=== PATIENT | female | born 1960 | race Caucasian/White ===

== ENCOUNTER 2020-05-02 16:11 | Outpatient (CLI) | payer MEDICARE, MEDICAID, SELFPAY ==
[2020-05-02 17:38] LABS: Free T4 Free Thyroxine 1.28 ng/dL (0.82-1.77); Thyroid Stimulating Hormone 1.71 uIU/mL (0.27-4.20)
[2020-05-04 21:47] LABS: Adrenocorticotropic Hormone 7 pg/mL (6-50)
== END 2020-05-02 16:12 | disposition home or self-care (01) ==
PROVIDERS: PCP Family Medicine; Visit Provider Internal Medicine
DX: E03.9 Hypothyroidism, unspecified (principal); E04.1 Nontoxic single thyroid nodule; M06.9 Rheumatoid arthritis, unspecified; R41.3 Other amnesia; R63.5 Abnormal weight gain; S09.90XA Unspecified injury of head, initial encounter; Z78.0 Asymptomatic menopausal state
CPT/HCPCS: 36415; 82024; 84439; 84443; 99205

== ENCOUNTER 2020-05-04 11:35 | Outpatient (CLI) | payer MEDICARE, MEDICAID, SELFPAY ==
[2020-05-04 11:52] LABS: Total Volume Urine 3500 ml
[2020-05-04 12:23] LABS: Urine Creatinine 22 mg/dL (28-217)
[2020-05-09 19:19] LABS: Free Cortisol Urine 6.2 mcg/24 h (4.0-50.0); Total Urine 3000 mL; Urine Creatinine 0.65 g/24 h (0.50-2.15)
== END 2020-05-04 11:36 | disposition home or self-care (01) ==
LOC: LAB 11:37
PROVIDERS: PCP Family Medicine; Visit Provider Internal Medicine
DX: E03.9 Hypothyroidism, unspecified (principal); R41.3 Other amnesia; R63.5 Abnormal weight gain; S09.90XA Unspecified injury of head, initial encounter; X58.XXXA Exposure to other specified factors, initial encounter
CPT/HCPCS: 82530; 82570

== ENCOUNTER 2020-05-31 12:36 | Outpatient (CLI) | payer MEDICARE, SELFPAY ==
--- NOTE | 2020-05-31 13:30 | US_ITS ---
WS: [id number] THYROID ULTRASOUND HISTORY: history of thyroid nodules COMPARISON: None available. Right lobe: 1.0 cm x 1.0 cm x 2.2 cm. Volume: 1.1 cm3. There are small caliber thyroid. Echogenic irregularly-shaped residual thyroid. No masses. No adenopa thy. Left lobe: 0.7 cm x 0.9 cm x 1.5 cm. Volume: 0.5 cm3. Small caliber thyroid. No dominant nodule. Echogenic irregular shaped residual thyroid. No adenopathy . Isthmus: 0.3 cm. Symmetric appearance of the submandibular glands. US/US thyroid [id number] IMPRESSION: Markedly atrophied heterogeneous residual thyroid gland. No suspicious nodules.
--- NOTE | 2020-05-31 13:57 | XR_ITS ---
WS: [id number] SCREENING DEXA SCAN CENX CLINICAL INFORMATION: screen for osteoporosis COMPARISON: None. FINDINGS: The L1-L4 bone mineral density measures 1.062 g/cm2. This corresponds to a T score score of -1.0 and Z score of 0.0. Left femoral neck bone mineral density measures 0.840 g/cm2. This corresponds to a T score of -1.3 an d Z score of -0.6. Right femoral neck bone mineral density measures 0.665 g/cm2. This corresponds to a T score -2.7of an d Z score of -1.9. Mean femoral neck bone mineral density measures 0.753 g/cm2. This corresponds to a T score of -2.0 an d Z score of -1.3. XR/XR DEXA axial skeleton* [id number] IMPRESSION: Osteopenia lumbar spine and left femur. Osteoporosis right femur. Patient's FRAX calculated 10 year probability for major osteoporotic fracture i s 22.6 % and osteoporotic hip fracture is 5.9%.
[2020-06-03 12:57] LABS: IGF1 LC/MS 89 ng/mL (41-279); Z Score (Male) -0.8 SD (-2.0 - +2.0)
== END 2020-05-31 12:37 | disposition home or self-care (01) ==
LOC: RAD 12:37
PROVIDERS: PCP Family Medicine; Visit Provider Internal Medicine
DX: Z13.820 Encounter for screening for osteoporosis (principal); E03.9 Hypothyroidism, unspecified; R63.5 Abnormal weight gain; R41.3 Other amnesia; S09.90XA Unspecified injury of head, initial encounter; X58.XXXA Exposure to other specified factors, initial encounter; M85.88 Other specified disorders of bone density and structure, other site
CPT/HCPCS: 36415; 76536; 77080; 84305

== ENCOUNTER 2020-10-11 12:06 | Outpatient (CLI) | payer MEDICARE, SELFPAY ==
--- NOTE | 2020-10-11 | XR_ITS ---
WS: [id number] Exam: XR foot LT min 3V* [id number] Date/Time of Exam: 10/11/2020 12:00 AM Reason For Exam: PAIN Findings: The foot was examined in multiple views and reveals no fractures or displacements of bone. No bony a nomalies are noted. The bony elements are in adequate alignment. The joint spaces are smooth and eq uidistant. Small plantar heel spur. XR/XR foot LT min 3V* [id number] IMPRESSION: No fracture or other significant finding. Small heel spur.
--- NOTE | 2020-10-11 12:26 | XR_ITS ---
WS: [email or web address] Exam: XR foot RT min 3V* [id number] Date/Time of Exam: 10/11/2020 12:26 PM Reason For Exam: PAIN Findings: The foot was examined in multiple views and reveals no fractures or displacements of bone. No bony a nomalies are noted. The bony elements are in adequate alignment. The joint spaces are smooth and eq uidistant. XR/XR foot RT min 3V* [id number] IMPRESSION: Negative right foot.
--- NOTE | 2020-10-11 12:26 | XR_ITS ---
WS: [email or web address] Exam: XR hand RT min 3V* [id number] Date/Time of Exam: 10/11/2020 12:26 PM Reason For Exam: inflammatory arthritis No fracture or dislocation. Soft tissues appear normal. Minimal degenerative changes in the IP joints . XR/XR hand RT min 3V* [id number] IMPRESSION: 1. No fracture or dislocation. Minimal DJD.
--- NOTE | 2020-10-11 12:26 | XR_ITS ---
WS: [id number] Exam: XR hand LT min 3V* [id number] Date/Time of Exam: 10/11/2020 12:26 PM Reason For Exam: inflammatory arthritis No acute fracture or dislocation. Minimal degenerative changes in the IP joints. No radiopaque soft t issue foreign bodies are seen. XR/XR hand LT min 3V* [id number] IMPRESSION: 1. Minimal degenerative change. No fracture or other significant finding. 2. 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
[2020-10-11 14:16] LABS: Erythrocyte Sedimentation Rate 18 mm/hr (0-15)
[2020-10-12 14:13] LABS: Cyclic Citrullinated Peptide <16 UNITS
[2020-10-12 17:23] LABS: Anti-Double Strand DNA AB 3 IU/mL; Centromere B Antibody <1.0 NEG AI (<1.0 NEG); JO-1 Antibody <1.0 NEG AI (<1.0 NEG); SS A Ro Sjogrens Antibody <1.0 NEG AI (<1.0 NEG); SS-B/LA IGG <1.0 NEG AI (<1.0 NEG); Sm/RNP Antibody <1.0 NEG AI (<1.0 NEG)
== END 2020-10-11 12:07 | disposition home or self-care (01) ==
LOC: RAD 12:18
PROVIDERS: PCP Family Medicine; Visit Provider Internal Medicine Pulmonary Disease
DX: M79.672 Pain in left foot (principal); M79.671 Pain in right foot; M19.042 Primary osteoarthritis, left hand; M19.041 Primary osteoarthritis, right hand; M77.9 Enthesopathy, unspecified
CPT/HCPCS: 36415; 73130; 73630; 85651; 86140; 86225; 86235

== ENCOUNTER 2020-10-21 08:34 | Outpatient (CLI) | payer MEDICARE, SELFPAY ==
--- NOTE | 2020-10-21 09:00 | CT_ITS ---
WS: [id number] CT CHEST TECHNIQUE: Noncontrast CT of the chest with coronal and sagittal reformatted images. CLINICAL INFORMATION: hilar mass COMPARISON: CT February 2019 and radiograph August 2020 DLP: 693.[address] scans at [facility] use at least one of these dose optimization techniques: automated e xposure control; mA and/or kV adjustment per patient size (includes targeted exams where dose is matc hed to clinical indication); or iterative reconstruction. FINDINGS: Moderate chronic emphysematous changes. Hazy groundglass infiltrates mainly in a subpleural location in the upper lobes and perihilar regions and both posterior lower lobes. Subsegmental atelectasis in the lung bases. No focal consolidation or pleural fluid. 5 mm noncalcified nodule right upper lobe. Normal caliber thoracic aorta. No mediastinal or hilar lymphadenopathy. Slightly prominent left perib ronchial lymph node measuring 9 mm. No axillary lymphadenopathy. Aberrant right subclavian artery. Adrenal glands are normal. Numerous partially evaluated hepatic cysts and these were present in 2019. Normal GE junction. CT/CT chest wo con [id number] IMPRESSION: 1. Moderate chronic emphysematous changes. 2. Bilateral hazy groundglass infiltrates primarily in a subpleural location. Findings suspicious for viral pneumonia including COVID 19 Pneumonia 3. No mediastinal or hilar lymphadenopathy. 4. Noncalcified 5 mm groundglass nodule right upper lobe. This appears stable since February 2019. Recommend 12 month follow-up. 5. Multiple partially visualized hepatic cysts.
== END 2020-10-21 08:35 | disposition home or self-care (01) ==
PROVIDERS: PCP Family Medicine; Visit Provider Internal Medicine Pulmonary Disease
DX: R91.8 Other nonspecific abnormal finding of lung field (principal); K76.89 Other specified diseases of liver; R91.1 Solitary pulmonary nodule
CPT/HCPCS: 71250

== ENCOUNTER 2021-01-02 12:50 | Outpatient (CLI) | payer MEDICARE, SELFPAY ==
--- NOTE | 2021-01-02 13:16 | CT_ITS ---
WS: [email or web address] Exam: CT chest wo con [id number] Date/Time of Exam: 01/02/2021 1:18 PM Reason For Exam: hilar mass DLP: 649.[address] scans at [facility] use at least one of these dose optimization techniques: automated e xposure control; mA and/or kV adjustment per patient size (includes targeted exams where dose is matc hed to clinical indication); or iterative reconstruction. Comparison 10/21/2020. Previously noted groundglass infiltrates have resolved. The lungs are fully inflated. No pleural or p ericardial effusion. Areas of plaque atelectasis in the lower lung zones. Stable 5 mm groundglass nod ule in the right upper lobe. Additional tiny groundglass densities are seen in the right lung which d o not have suspicious appearance. The airway is patent. No mediastinal or hilar lymphadenopathy. The thoracic aorta is normal in caliber. Stable appearing partially fatty replaced anterior pericarinal l ymph node noted. This measures about 9 mm. No destructive bone lesions are chest wall defects. Severa l cysts are seen in the liver. CT/CT chest wo con [id number] IMPRESSION: 1. Resolved groundglass infiltrates since previous study. 2. 5 mm groundglass nodule in the right upper lobe is stable in appearance. The re are several other tiny micronodules in the right lung which do not have susp icious appearance. 3. No suspicious pulmonary mass or significant lymphadenopathy in the chest.
== END 2021-01-02 12:51 | disposition home or self-care (01) ==
PROVIDERS: PCP Family Medicine; Visit Provider Internal Medicine Pulmonary Disease
DX: R91.8 Other nonspecific abnormal finding of lung field (principal)
CPT/HCPCS: 71250